=== PATIENT | female | born 1940 | race Caucasian/White ===

== ENCOUNTER 2017-09-02 14:20 | Inpatient (IN) | payer OTHER ==
[~2017-09-02] VITALS: Ht 165.1 cm; Wt 69.9 kg
[2017-09-02 14:28] VITALS: Ht 165.1 cm; Wt 69.9 kg
[2017-09-02 15:06] LABS: BASOPHIL % 0.6 % (0-2); PLATELET COUNT 229 x10^3mcL (130-400); RED CELL DISTRIBUTION WIDTH 14.4 % (11.5-14.5)
[2017-09-02 15:19] LABS: CALCIUM 10.5 mg/dL (8.5-10.1); CARBON DIOXIDE 21.2 mmol/L (21-32); CHLORIDE SERUM 105 mmol/L (98-107); CREATININE SERUM 0.8 mg/dL (0.6-1.0); GLUCOSE SERUM 167 mg/dL (74-106); POTASSIUM SERUM 3.4 mmol/L (3.5-5.1); SODIUM SERUM 139 mmol/L (136-145)
[2017-09-02 15:23] LABS: ALBUMIN 3.8 g/dL (3.4-5.0); ALKALINE PHOSPHATASE 122 U/L (46-116); ALT/SGPT 15 U/L (14-59); AST/SGOT 11 U/L (15-37); TOTAL PROTEIN, SERUM 7.8 g/dL (6.4-8.2)
[2017-09-02] MEDS ORDERED: NORCO1 TA2 PO (17:50)
[2017-09-02 19:13] LABS: UA SPECIFIC GRAVITY <=1.005 (1.005-1.035); microscopic required? YES; urine erythrocyte TRACE (NEGATIVE)
[2017-09-02 19:22] LABS: AMPHETAMINE QUAL UR NONE DETECTED (NEG <=1000)
[2017-09-02 19:31] LABS: T3 TOTAL 1.01 ng/mL
[2017-09-02 19:34] LABS: CHOLESTEROL/HDL RATIO 3.1; MAGNESIUM 1.8 mg/dL (1.8-2.4)
[2017-09-02 19:44] LABS: FREE T4 1.19 ng/dL (0.76-1.46); FREE THYROXINE INDEX 3.2 ug/dL (1.4-4.5); T4(THYROXINE) 8.8 ug/dL (4.7-13.3)
[2017-09-02 22:05] VITALS: BP 165/98
[2017-09-02 23:35] VITALS: BP 154/96
[2017-09-03 05:56] VITALS: BP 138/68
[2017-09-03 07:25] LABS: CALCIUM 9.9 mg/dL (8.5-10.1); CARBON DIOXIDE 24.6 mmol/L (21-32); CHLORIDE SERUM 107 mmol/L (98-107); CREATININE SERUM 0.8 mg/dL (0.6-1.0); GLUCOSE SERUM 93 mg/dL (74-106); MAGNESIUM 1.6 mg/dL (1.8-2.4); POTASSIUM SERUM 3.7 mmol/L (3.5-5.1); SODIUM SERUM 143 mmol/L (136-145)
[2017-09-03 09:24] LABS: BASOPHIL % 0.6 % (0-2); PLATELET COUNT 197 x10^3mcL (130-400)
[2017-09-03 10:03] VITALS: BP 117/80
[2017-09-03 13:30] VITALS: BP 128/64
[2017-09-03 17:56] VITALS: BP 144/86
[2017-09-03 21:13] VITALS: BP 127/77
[2017-09-04 05:33] VITALS: BP 118/80
[2017-09-04 09:04] VITALS: BP 138/79
[2017-09-04 14:00] VITALS: BP 126/82
[2017-09-04 15:56] LABS: PLATELET COUNT 245 x10^3mcL (130-400)
[2017-09-04 15:57] LABS: RED CELL DISTRIBUTION WIDTH 14.9 % (11.5-14.5)
[2017-09-04 16:20] LABS: CALCIUM 10.3 mg/dL (8.5-10.1); CARBON DIOXIDE 26.9 mmol/L (21-32); CHLORIDE SERUM 104 mmol/L (98-107); CREATININE SERUM 1.2 mg/dL (0.6-1.0); GLUCOSE SERUM 139 mg/dL (74-106); MAGNESIUM 1.7 mg/dL (1.8-2.4); PHOSPHOROUS 3.5 mg/dL (2.5-4.9); POTASSIUM SERUM 3.8 mmol/L (3.5-5.1); SODIUM SERUM 140 mmol/L (136-145)
[2017-09-04 17:51] VITALS: BP 139/86
[2017-09-04 21:02] VITALS: BP 139/73
[2017-09-05 05:01] VITALS: BP 107/67
[2017-09-05 07:01] LABS: BASOPHIL % 0.6 % (0-2); PLATELET COUNT 225 x10^3mcL (130-400); RED CELL DISTRIBUTION WIDTH 14.9 % (11.5-14.5)
[2017-09-05 07:10] LABS: CARBON DIOXIDE 26.4 mmol/L (21-32); CHLORIDE SERUM 103 mmol/L (98-107); CREATININE SERUM 0.9 mg/dL (0.6-1.0); GLUCOSE SERUM 142 mg/dL (74-106); MAGNESIUM 2.4 mg/dL (1.8-2.4); PHOSPHOROUS 3.6 mg/dL (2.5-4.9); POTASSIUM SERUM 3.7 mmol/L (3.5-5.1); SODIUM SERUM 137 mmol/L (136-145)
[2017-09-05 08:52] VITALS: BP 139/83
[2017-09-05 11:53] VITALS: BP 128/87
[2017-09-05 17:11] VITALS: BP 126/82
[2017-09-05 22:25] VITALS: BP 101/53; BP 113/75
[2017-09-06 06:33] VITALS: BP 112/61
[2017-09-06 06:33] LABS: CALCIUM 10.1 mg/dL (8.5-10.1); CARBON DIOXIDE 29.6 mmol/L (21-32); CHLORIDE SERUM 100 mmol/L (98-107); CREATININE SERUM 1.2 mg/dL (0.6-1.0); GLUCOSE SERUM 114 mg/dL (74-106); MAGNESIUM 2.1 mg/dL (1.8-2.4); PHOSPHOROUS 4.3 mg/dL (2.5-4.9); SODIUM SERUM 138 mmol/L (136-145)
[2017-09-06 06:43] LABS: PLATELET COUNT 247 x10^3mcL (130-400)
[2017-09-06 06:44] LABS: BASOPHIL % 2.2 % (0-2)
[2017-09-06 09:56] VITALS: BP 131/66
[2017-09-06] MEDS ORDERED: COR3 PO (10:42)
[2017-09-06] MEDS ORDERED: METHOCARBAMOL500 MG PO (10:42)
[2017-09-06] MEDS ORDERED: ZES20 PO (10:43)
[2017-09-06] MEDS ORDERED: ALD25 PO (10:43)
[2017-09-06] MEDS ORDERED: LAC PO (10:44)
[2017-09-06] MEDS ORDERED: LEVAQUIN750 MG PO (10:45)
[2017-09-06 12:11] VITALS: BP 131/66
[2017-09-06 13:08] VITALS: BP 118/73
== END 2017-09-06 15:00 | disposition home or self-care (01) | DRG 291 ==
LOC: ED 14:20 → DU 17:38
PROVIDERS: Family Medicine
DX: I50.43 Acute on chronic combined systolic (congestive) and diastolic (congestive) heart failure (principal); N17.0 Acute kidney failure with tubular necrosis; J96.00 Acute respiratory failure, unspecified whether with hypoxia or hypercapnia; N39.0 Urinary tract infection, site not specified; G90.50 Complex regional pain syndrome I, unspecified; I42.0 Dilated cardiomyopathy; M47.894 Other spondylosis, thoracic region; M41.54 Other secondary scoliosis, thoracic region; R73.03 Prediabetes; E87.6 Hypokalemia; E83.42 Hypomagnesemia; E83.52 Hypercalcemia; E78.5 Hyperlipidemia, unspecified; E66.3 Overweight; Z68.25 Body mass index [BMI] 25.0-25.9, adult
CPT/HCPCS: 83880; 84439; A9500; J1885; J1940; J1956; J2785; J3475; J7030

== ENCOUNTER 2017-09-10 12:30 | Emergency (ER) | payer OTHER ==
[~2017-09-10] VITALS: Ht 165.1 cm; Wt 70.8 kg
[~2017-09-10 12:30] MED LIST: ALD25 PO; COR3 PO; LAC PO; LEVAQUIN750 MG PO; METHOCARBAMOL500 MG PO; NORCO1 TA2 PO; ZES20 PO
[2017-09-10 12:34] VITALS: Ht 165.1 cm; Wt 70.8 kg
[2017-09-10 13:02] VITALS: BP 102/65
== END 2017-09-10 13:03 | disposition home or self-care (01) ==
LOC: ED 12:30
DX: I50.9 Heart failure, unspecified (principal); Z91.041 Radiographic dye allergy status